=== PATIENT | female | born 1985 | race Caucasian/White ===

== ENCOUNTER 2016-07-21 08:08 | Emergency (ER) | payer SELFPAY ==
[~2016-07-21] VITALS: Ht 170.2 cm; Wt 76.1 kg
[~2016-07-21 08:08] MED LIST: NOHOMEMEDS
[2016-07-21] MEDS ORDERED: ATARAX,VISTARIL50 MG PO (09:18)
[2016-07-21 09:38] VITALS: BP 112/76
== END 2016-07-21 09:38 | disposition home or self-care (01) ==
LOC: EME 08:08
DX: F41.0 Panic disorder [episodic paroxysmal anxiety] (principal); F43.23 Adjustment disorder with mixed anxiety and depressed mood; Z72.0 Tobacco use
CPT/HCPCS: 90839; 99281; 99284